=== PATIENT | male | born 1955 | race American Indian/Alaskan Native ===

== ENCOUNTER 2017-11-26 23:15 | Emergency (ER) | payer BC ==
[2017-11-27] MEDS ORDERED: ASPIRIN PO ONE (00:13)
[2017-11-27 00:31] LABS: Basophils # (Auto) 0.1 K/mm3 (0.0-0.1); Eosinophils # (Auto) 0.1 K/mm3 (0.0-0.4); Eosinophils % (Auto) 1.5 % (0.0-4.3); Hematocrit 43.7 % (35.5-45.6); Hemoglobin 14.4 gm/dl (11.8-15.2); Lymphocytes # (Auto) 1.2 K/mm3 (1.2-5.4); Lymphocytes % (Auto) 23.4 % (13.4-35.0); Mean Corpuscular HGB Conc 33 % (32-34); Mean Corpuscular Hemoglobin 29 pg (28-32); Mean Corpuscular Volume 86 fl (84-94); Monocytes # (Auto) 0.4 K/mm3 (0.0-0.8); Monocytes % (Auto) 7.8 % (0.0-7.3); Platelet Count 186 K/mm3 (140-440); Red Blood Count 5.06 M/mm3 (3.65-5.03); Red Cell Distribution Width 15.5 % (13.2-15.2)
[2017-11-27 00:59] LABS: BUN/Creatinine Ratio 14; Blood Urea Nitrogen 15 mg/dL (9-20); Calcium 8.6 mg/dL (8.4-10.2); Hemolysis Index 9
--- NOTE | 2017-11-27 05:43 | Emergency Department Report ---
ED Chest Pain HPI - General Chief Complaint: Chest Pain Stated Complaint: CHEST PAIN Time Seen by Provider: 11/27/17 04:36 Source: patient Mode of arrival: Ambulatory Limitations: No Limitations - History of Present Illness Initial Comments: Patient is here complaining of chest pain on the left side of the chest. Pain is also substernal in location. It started while he was at work at about 8 PM. Patient states he is pain-free at this time. The pain was a sharp pain nonradiating with aggravation when he stretches in certain directions. Also no relieving factor. Pain went on its own. MD Complaint: chest pain Onset/Timin (day) - Related Data Allergies Allergy/AdvReac Type Severity Reaction Status Date / Time scaled fish Allergy Anaphylaxis Uncoded 11/27/17 00:12 Heart Score - HEART Score History: Slightly suspicious EKG: Normal Age: 45-65 Risk factors: 1-2 risk factors Troponin: < normal limit HEART Score: 2 ED Review of Systems ROS: Stated complaint: CHEST PAIN Other details as noted in HPI Comment: All other systems reviewed and negative ED Past Medical Hx - Past Medical History Previous Medical History?: Yes Additional medical history: enlarged prostate; currently being followed by urologist - Surgical History Past Surgical History?: No - Social History Smoking Status: Never Smoker Substance Use Type: Alcohol ED Physical Exam - General Limitations: No Limitations General appearance: alert, in no apparent distress - Head Head exam: Present: atraumatic, normocephalic - Eye Eye exam: Present: normal appearance - ENT ENT exam: Present: mucous membranes moist - Neck Neck exam: Present: normal inspection - Respiratory Respiratory exam: Present: normal lung sounds bilaterally. Absent: respiratory distress - Cardiovascular Cardiovascular Exam: Present: regular rate, normal rhythm. Absent: systolic murmur, diastolic murmur, rubs, gallop - GI/Abdominal GI/Abdominal exam: Present: soft, normal bowel sounds. Absent: tenderness - Rectal Rectal exam: Present: deferred - Extremities Exam Extremities exam: Present: normal inspection - Back Exam Back exam: Present: normal inspection - Neurological Exam Neurological exam: Present: alert, oriented X3 - Psychiatric Psychiatric exam: Present: normal affect, normal mood - Skin Skin exam: Present: warm, dry, intact, normal color. Absent: rash ED Course Vital Signs 11/27/17 11/27/17 11/27/17 00:07 02:50 03:00 Temperature 98.2 F Pulse Rate 92 H 83 80 Respiratory 18 17 17 Rate Blood Pressure 149/86 161/91 O2 Sat by Pulse 96 95 93 Oximetry 11/27/17 11/27/17 11/27/17 03:15 03:30 03:45 Temperature Pulse Rate 73 75 87 Respiratory 14 16 19 Rate Blood Pressure 148/78 153/81 153/96 O2 Sat by Pulse 95 89 91 Oximetry 11/27/17 11/27/17 11/27/17 04:00 04:15 04:30 Temperature Pulse Rate 77 75 73 Respiratory 18 16 14 Rate Blood Pressure 166/89 149/85 150/82 O2 Sat by Pulse 96 92 96 Oximetry 11/27/17 11/27/17 04:45 05:00 Temperature Pulse Rate 73 75 Respiratory 16 15 Rate Blood Pressure 157/86 154/87 O2 Sat by Pulse 94 96 Oximetry ED Medical Decision Making - Lab Data Result diagrams: 11/27/17 00:20 11/27/17 00:20 - EKG Data -: EKG Interpreted by [facility] EKG shows normal: sinus rhythm (normal sinus rhythm at a rate of 97), axis ( normal), intervals (normal), QRS complexes (normal), ST-T waves (nonspecific ST and T-wave changes) Critical care attestation.: If time is entered above; I have spent that time in minutes in the direct care of this critically ill patient, excluding procedure time. ED Disposition Clinical Impression: Atypical chest pain Disposition: DC-01 TO HOME OR SELFCARE Is pt being admited?: No Does the pt Need Aspirin: No Condition: Stable Instructions: Chest Pain (ED), Costochondritis (ED) Referrals: PRIMARY CARE, [Referring] - 2-3 Days Time of Disposition: 05:49 Print Language: IRISH
[2017-11-27 06:05] VITALS: BP 154/87
== END 2017-11-27 06:05 | disposition home or self-care (01) ==
LOC: ED 23:15
DX: R07.89 Other chest pain (principal); Z91.013 Allergy to seafood
CPT/HCPCS: 36415; 80048; 84484; 85025; 93005; 93010; 99283